=== PATIENT | male | born 1965 | race Hispanic/Latino ===

== ENCOUNTER 2017-10-23 11:11 | Emergency (ER) | payer BC ==
--- NOTE | 2017-10-23 11:53 | RAD ---
LEFT HAND THREE VIEWS: History: Pain. Comparison: 10-16-16 FINDINGS: There is a segmental fracture of the fourth metacarpal diaphysis with one cortex width lateral displa cement. There is a 2-3 mm possible migration. 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 IMPRESSION: Segmental fracture of the fourth metacarpal diaphysis. POS: [facility]
== END 2017-10-23 12:55 | disposition home or self-care (01) ==
LOC: SCSER 11:11
DX: S62.325A Displaced fracture of shaft of fourth metacarpal bone, left hand, initial encounter for closed fracture (principal); E78.5 Hyperlipidemia, unspecified; I10 Essential (primary) hypertension; E11.9 Type 2 diabetes mellitus without complications; Z79.84 Long term (current) use of oral hypoglycemic drugs; Z79.899 Other long term (current) drug therapy; W22.8XXA Striking against or struck by other objects, initial encounter
CPT/HCPCS: 29130